=== PATIENT | male | born 1975 | race Caucasian/White ===

== ENCOUNTER 2019-02-14 10:19 | Emergency (ER) | payer OTHER ==
[~2019-02-14] VITALS: Ht 170.2 cm; Wt 70.0 kg
[2019-02-14] MEDS ORDERED: LORAZEPAM 2 MG INJ IM STA (10:22)
[2019-02-14] MEDS ORDERED: HALOPERIDOL 5 MG INJ IM STA (10:22)
[2019-02-14] MEDS ORDERED: HALOPERIDOL 5 MG INJ ONE (10:24)
[2019-02-14] MEDS ORDERED: LORAZEPAM 2 MG INJ ONE (10:24)
[2019-02-14 10:31] VITALS: Ht 170.2 cm; Wt 70.0 kg
[2019-02-14] MEDS ORDERED: OLANZAPINE 10 MG VIAL IM ONE (12:00)
[2019-02-14] MEDS ORDERED: LORAZEPAM 2 MG INJ IM ONE (12:00)
--- NOTE | 2019-02-14 12:27 | ERD ---
ER Documentation Chief Complaint Chief Complaint BIB [facility] AND [employer] FOR AGITATION. POSSIBLE METH USE HPI 44-year-old male brought in by police and paramedics after being found running naked down the street. No further history is available from the patient as he is actively psychotic. 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 Pre-hospital vital signs were reviewed. Pre-hospital diagnostic tests were reviewed. Later in the emergency department course, after sedation, patient reported methamphetamine abuse. ROS All systems reviewed and are negative except as per history of present illness. Medications Home Meds Unable to Obtain Active Prescriptions or Reported Meds Allergies Allergies: Coded Allergies: Unknown: Unable to obtain (Unverified , 02/14/19) PMhx/Soc Medical and Surgical Hx: Unable to obtain Smoking Status: Former smoker FmHx Unknown at this time Physical Exam Vitals Vital Signs Date Temp Pulse Resp B/P (MAP) Pulse Ox O2 O2 Flow FiO2 Time Delivery Rate 02/14/19 98.9 154 26 173/86 99 10:31 (115) 02/14/19 98.6 154 26 174/86 99 10:30 (115) Physical Exam GENERAL: Well-developed, well-nourished. Patient is agitated and psychotic HEENT: Pupils equal, round, and reactive to light. EOMI. There is no scleral icterus. No evidence of head trauma NECK: C-spine is soft and supple, there is no meningismus. There is no cervical lymphadenopathy. LUNGS: Clear to auscultation bilaterally. There are no rales, wheezes or rhonchi. HEART: Rapid, regular rate and rhythm, no murmurs, clicks, rubs or gallops. ABDOMEN: Soft, non-tender, non-distended. There are bowel sounds in all four quadrants. No rebound or guarding. EXTREMITIES: There is no peripheral cyanosis or edema. No focal swelling or erythema. NEURO: Awake, agitated with no insight or judgment. He is hyperverbal and hyper agitated. Moving all 4 extremities normally. SKIN: There is no apparent rash or petechiae. HEME/LYMPHATIC: There is no evidence of excessive bruising or lymphedema. PSYCHIATRIC: The patient is agitated and psychotic. Result Diagram: 02/14/19 1109 02/14/19 1109 Results 24 hrs Laboratory Tests Test 02/14/19 11:09 White Blood Count 9.9 10^3/ul Red Blood Count 4.52 10^6/ul Hemoglobin 13.1 g/dl Hematocrit 37.4 % Mean Corpuscular Volume 82.7 fl Mean Corpuscular Hemoglobin 29.0 pg Mean Corpuscular Hemoglobin Concent 35.0 g/dl Red Cell Distribution Width 13.0 % Platelet Count 191 10^3/UL Mean Platelet Volume 9.3 fl Immature Granulocytes % 0.600 % Neutrophils % 80.0 % Lymphocytes % 11.7 % Monocytes % 7.2 % Eosinophils % 0.1 % Basophils % 0.4 % Nucleated Red Blood Cells % 0.0 /100WBC Immature Granulocytes # 0.060 10^3/ul Neutrophils # 7.9 10^3/ul Lymphocytes # 1.2 10^3/ul Monocytes # 0.7 10^3/ul Eosinophils # 0.0 10^3/ul Basophils # 0.0 10^3/ul Nucleated Red Blood Cells # 0.0 10^3/ul Sodium Level 144 mmol/L Potassium Level 4.0 mmol/L Chloride Level 112 mmol/L Carbon Dioxide Level 19 mmol/L Anion Gap 13 Blood Urea Nitrogen 19 mg/dl Creatinine 1.10 mg/dl Est Glomerular Filtrat Rate mL/min > 60 mL/min Glucose Level 92 mg/dl Calcium Level 10.0 mg/dl Total Bilirubin 1.0 mg/dl Direct Bilirubin 0.00 mg/dl Indirect Bilirubin 1.0 mg/dl Aspartate Amino Transf (AST/SGOT) 39 IU/L Alanine Aminotransferase (ALT/SGPT) 28 IU/L Alkaline Phosphatase 94 IU/L Total Protein 7.4 g/dl Albumin 4.2 g/dl Globulin 3.20 g/dl Albumin/Globulin Ratio 1.31 Salicylates Level < 1.0 mg/dl Acetaminophen Level < 10.0 ug/ml Ethyl Alcohol Level < 10.0 mg/dl Current Medications Medications Dose Sig/Emilee Start Time Status Last (Trade) Ordered Route PRN Stop Time Admin Dose Reason Admin Lorazepam 2 mg ONCE STAT 02/14/19 DC 02/14/19 (Ativan) IM 10:22 10:30 02/14/19 10:25 Haloperidol 5 mg ONCE STAT 02/14/19 DC 02/14/19 (Haldol) IM 10:22 10:30 02/14/19 10:25 Olanzapine 10 mg ONCE ONCE 02/14/19 DC 02/14/19 (Zyprexa) IM 12:00 11:59 02/14/19 12:01 Lorazepam 1 mg ONCE ONCE 02/14/19 DC 02/14/19 (Ativan) IM 12:00 11:59 02/14/19 12:01 Procedures/MDM Patient was taken to a room, seen and evaluated. Patient required immediate restraint and sedation Diagnostic tests were ordered and reviewed. 3 LEAD RHYTHM STRIP: Sinus tachycardia REEVALUATION: 1220: Patient is more sedated at this time and we are able to de- escalate the restraints. However, he still remains sedated. MEDICAL DECISION MAKIN-year-old male presents the emergency department after running through the streets naked. Patient has evidence of methamphetamine induced psychosis. He is required aggressive medical and chemical restraint and is now deescalated. His lab tests demonstrate no indications of other high-risk infection or other high-risk concerns and he shows no other evidence of significant trauma. Patient will remain under observation until such time as he is sober which time we can reevaluate him. Departure Diagnosis: Primary Impression: Psychosis Additional Impression: Methamphetamine abuse Condition: Serious HONORIONIKUNJ Feb 14, 2019 12:27
[2019-02-15 10:10] VITALS: BP 128/78; PULSE 88; RESP 16
== END 2019-02-15 10:20 | disposition home or self-care (01) ==
LOC: E/R 10:19 → EDBD 10:19 → E/R 02-15 10:20
DX: F15.159 Other stimulant abuse with stimulant-induced psychotic disorder, unspecified (principal); R40.2142 Coma scale, eyes open, spontaneous, at arrival to emergency department; R40.2352 Coma scale, best motor response, localizes pain, at arrival to emergency department; R40.2242 Coma scale, best verbal response, confused conversation, at arrival to emergency department; Z87.891 Personal history of nicotine dependence
CPT/HCPCS: 80053; 80307; 85025; 96372; J1630; J2060; Z7502; Z7610

== ENCOUNTER 2019-05-04 03:25 | Emergency (ER) | payer OTHER ==
[~2019-05-04] VITALS: Ht 172.7 cm; Wt 65.0 kg
[2019-05-04] MEDS ORDERED: LORAZEPAM 2 MG INJ IV STA (03:27)
[2019-05-04] MEDS ORDERED: HALOPERIDOL 5 MG INJ IM STA (03:27)
[2019-05-04] MEDS ORDERED: DIPHENHYDRAMINE 50 MG INJ IM ONE (03:30)
--- NOTE | 2019-05-04 03:34 | ERD ---
ER Documentation Chief Complaint Chief Complaint HPI This is a 44-year-old male, with an unknown psychiatric history who presents brought in on a 5150 hold by police, for agitation, and concern for grave disability. Patient was found in the street wandering and disheveled, running around cars. He was comforted by police, and patient was tangential and nonsensical. Patient provides a limited history, stating "why so serious will be doing" ROS All systems reviewed and are negative except as per history of present illness. Medications Home Meds Unable to Obtain Active Prescriptions or Reported Meds Allergies Allergies: Coded Allergies: Unknown: Unable to obtain (Unverified , 02/14/19) Physical Exam Physical Exam Const: Disheveled appearing, tangential Head: Atraumatic Eyes: Normal Conjunctiva ENT: Normal External Ears, Nose and Mouth. Neck: Full range of motion. No meningismus. Resp: Clear to auscultation bilaterally Cardio: Regular rate and rhythm, no murmurs Abd: Soft, non tender, non distended. Normal bowel sounds Skin: No petechiae or rashes Back: No midline or flank tenderness Ext: No cyanosis, or edema Neur: Awake and alert Psych: Agitated appearing, tangential Procedures/MDM 44-year-old male presents for evaluation of agitation, brought in on a 5150 hold. His presentation is most likely consistent with schizophrenia, psychosis secondary to drug intoxication is also considered, plan will be for transfer to an outside psychiatric facility, versus psychiatric consult, once determined that patient is clinically sober, without evidence of drug intoxication. Departure Diagnosis: Primary Impression: Grave disability Additional Impression: Psychosis Psychosis type: unspecified psychosis type Qualified Codes: F29 - Unspecified psychosis not due to a substance or known physiological condition Condition: AICHA Navarrete MD May 04, 2019 03:34
[2019-05-04 03:42] VITALS: Ht 172.7 cm; Wt 65.0 kg
[2019-05-04 19:08] VITALS: BP 116/78; PULSE 68; RESP 18
== END 2019-05-04 19:09 ==
LOC: E/R 03:25
DX: F79 Unspecified intellectual disabilities (principal); F29 Unspecified psychosis not due to a substance or known physiological condition
CPT/HCPCS: 36415; 70450; 80053; 80307; 81001; 85025; 96372; 96374; J1200; J1630; J2060; Z7502